=== PATIENT | male | born 1965 | race Caucasian/White ===

== ENCOUNTER 2016-12-23 20:41 | Emergency (ER) | payer SELFPAY ==
[~2016-12-23] VITALS: Ht 170.2 cm; Wt 63.5 kg
[~2016-12-23 20:41] MED LIST: LEXAPRO10 MG ORAL
--- NOTE | 2016-12-23 21:05 | Emergency Room Report ---
History of Present Illness General Chief Complaint: Syncope Source: Patient Present Illness HPI 51YOM BIBEMS with syncopal episode at restaurant Patient smoked marijuana, had 2x ETOH drinks Was on date, very anxious, "hyperventilated myself" and "had to get out of there." "[place] it coming on." History of passing out. Was evaluated previously by PMD - never saw field technical support consultant though. has been taking marijuana for years - has precipitated syncope in the past Patient leaned against wall, slowly lowered himself to ground. ?if actual LOC. Was "seconds maybe." Atraumatic Denies precipitating chest pain, palpitations, SOB Takes Vyvanse for ADHD Denies other medications, med problems Allergies: Coded Allergies: No Known Allergies (Unverified , 12/23/16) Patient History Past Medical History: psych hx, other - ADHD Past Surgical History: none Pertinent Family History: none Social History: Denies: smoking, alcohol use, drug use Immunizations: UTD Reviewed Nursing Documentation: PMH: Agreed, PSxH: Agreed Nursing Documentation-PMH History Of Psychiatric Problem: Yes - ANXIETY Review of Systems All Other Systems: negative except mentioned in HPI Physical Exam Vital Signs Date Time Temp Pulse Resp B/P (MAP) Pulse Ox O2 Delivery O2 Flow Rate FiO2 12/23/16 20:35 96.6 68 14 105/61 100 Room Air Sp02 EP Interpretation: reviewed, normal General Appearance: normal inspection, well appearing, no apparent distress, alert, GCS 15, non-toxic, other - Well appearing, on phone. Incontinent of urine Head: normocephalic, atraumatic Eyes: bilateral eye PERRL, bilateral eye EOMI ENT: normal ENT inspection, hearing grossly normal, normal voice Neck: normal inspection, full range of motion, supple, no bony tend Respiratory: normal inspection, lungs clear, normal breath sounds, no respiratory distress, no retraction, no wheezing Cardiovascular #1: regular rate, rhythm, no edema Gastrointestinal: normal inspection, normal bowel sounds, non tender, soft, no guarding, no hernia Genitourinary: no CVA tenderness Musculoskeletal: normal inspection, back normal, normal range of motion, Joselyn' s Sign negative Neurologic: normal inspection, alert, oriented x3, responsive, embroidery specialist III-XII nml as tested, motor strength/tone normal, speech normal Psychiatric: normal inspection, judgement/insight normal, mood/affect normal Skin: normal inspection, normal color, no rash Medical Decision Making Diagnostic Impression: Primary Impression: Syncope Qualified Codes: R55 - Syncope and collapse Additional Impression: Prolonged Q-T interval on ECG ER Course ECG shows NSR, no ischemia. Qtc 480 Likely vasovagal syncope given prodrome, short duration, quick recovery without post-ictal period, history of similar episodes brought on by anxiety/ hyperventilation No other risk factors under [facility] Syncopal rules that would require additional lab work, imaging, admission/evaluation STRONGLY advised STOPPING Vyvanse as it is a known cause of prolonged QTC has PMD - will ask for cardiology referral for echo/stress test Also counseled against marijuana use EKG Diagnostic Results Rate: normal Rhythm: NSR, other - prolonged QTc ST Segments: no acute changes ASA given to the pt in ED: No Rhythm Strip Diag. Results EP Interpretation: yes Rate: 65 Rhythm: NSR, no PVC's, no ectopy Last Vital Signs Date Time Temp Pulse Resp B/P (MAP) Pulse Ox O2 Delivery O2 Flow Rate FiO2 12/23/16 20:35 96.6 68 14 105/61 100 Room Air Status: improved Disposition: HOME, SELF-CARE Condition: Improved Patient Instructions: Long QT Syndrome, Syncope Additional Instructions: Your ECG shows prolonged QTc. - STOP taking Vyvanse as it is known to prolong QT - Follow up with your doctor for referral to cardiolog for echocardiogram and possibly stress test SHARATH OLVERA M.D. Dec 23, 2016 21:05
[2016-12-23 21:10] VITALS: BP 111/65
[2016-12-23 21:15] VITALS: BP 111/65
== END 2016-12-23 21:11 | disposition home or self-care (01) ==
LOC: EDBD 20:41 → EMR 21:00
DX: R55 Syncope and collapse (principal); I45.81 Long QT syndrome; F41.9 Anxiety disorder, unspecified; F12.90 Cannabis use, unspecified, uncomplicated; Z72.89 Other problems related to lifestyle; F90.9 Attention-deficit hyperactivity disorder, unspecified type; Z86.59 Personal history of other mental and behavioral disorders
CPT/HCPCS: 93005; 99284